=== PATIENT | female | born 1935 | race Caucasian/White ===

== ENCOUNTER 2017-10-30 17:54 | Emergency (ER) | payer OTHER ==
[~2017-10-30] VITALS: Ht 165.1 cm; Wt 100.6 kg
[~2017-10-30 17:54] MED LIST: AGGRENOX1 CAPSULE PO; APRESOLINE50 MG PO; ASPIR 8181 M1 PO; ASPIR-LOW81 M1 PO; ASPIRIN E.C.81 M1 PO; Ascorbic Acid,Ester- PO; CATAPRES0.2 MG PO; COLACE100 MG PO; COUMADIN,JANTOVE2 MG PO; COZAAR100 MG PO; DIOVAN320 MG PO; DIOVAN80 MG PO; DITROPAN5 MG PO; DULCOLAX5 MG PO; HYDROCHLOROTHIA25 MG PO; INDOCIN25 MG PO; INDOMETHACIN25 MG PO; K-DUR20 MEQ PO; LASIX20 MG PO; LASIX40 MG PO; LEVOTHYROXINE25 MCG PO; LEVOXYL25 MCG PO; LEXAPRO10 MG PO; LO-DOSE ASPIRIN81 M1 PO; LOPRESSOR50 MG PO; LOSARTAN POTAS100 MG PO; Lopressor PO; MECLIZINE HCL12.5 M1 PO; NEURONTIN300 MG PO; NEXIUM40 MG PO; Oyst-Cal D, Oscal W/ PO; PACERONE200 M1 PO; PERCOCET 5/31 TABLET PO; SERTRALINE HCL50 MG PO; SIMVASTATIN40 MG PO; Senokot,Sennagen PO; THERAGRAN1 TABLET PO; TOPROL XL50 MG PO; Tylenol Regular Stre PO; VESICARE5 MG PO; ZOCOR40 MG PO; Zocor PO
[2017-10-30 18:29] LABS: HEMATOCRIT 35.4 % (36.0-46.0); HEMOGLOBIN 11.5 G/DL (11.9-15.5); MCH 30.8 PG (29.0-34.0); MCHC 32.5 G/DL (30.0-36.0); MCV 94.9 FL (83-99); PLATELET COUNT 120 K/uL (156-360); RBC DIS.WIDTH-CV 14.7 % (11.8-14.6); RBC DIS.WIDTH-SD 51.3 % (39-53); RED BLOOD COUNT 3.73 M/uL (3.80-5.20); WHITE BLOOD COUNT 6.7 K/uL (4.1-10.2)
[2017-10-30 18:41] LABS: CHLORIDE 108 mEq/L (99-109); POTASSIUM 3.6 mEq/L (3.7-5.4); SODIUM 144 mEq/L (136-147)
[2017-10-30 18:43] LABS: GLUCOSE 101 mg/dL (70-99)
[2017-10-30 18:47] LABS: CREATININE 1.3 mg/dL (0.6-1.3); GFR ESTIMATE (CALCULATED) 42 mL/min/
[2017-10-30 18:48] LABS: UREA NITROGEN (BUN) 19 mg/dL (9-23)
[2017-10-30 18:51] LABS: TROP-I INTERPRETATION NEGATIVE; TROPONIN-I 0.02 ng/mL (0.0-0.30)
[2017-10-30] MEDS ORDERED: MOTRIN800 MG PO (19:00)
[2017-10-30] MEDS ORDERED: FLEXERIL10 MG PO (19:00)
[2017-10-30 21:21] VITALS: BP 138/76
== END 2017-10-30 21:22 | disposition home or self-care (01) ==
LOC: EME 17:54
PROVIDERS: Nurse Practitioner Family
DX: S16.1XXA Strain of muscle, fascia and tendon at neck level, initial encounter (principal); R51 Headache; V43.02XA Car driver injured in collision with other type car in nontraffic accident, initial encounter; Y92.410 Unspecified street and highway as the place of occurrence of the external cause; I11.0 Hypertensive heart disease with heart failure; I50.9 Heart failure, unspecified; Z79.82 Long term (current) use of aspirin; K21.9 Gastro-esophageal reflux disease without esophagitis; Z95.1 Presence of aortocoronary bypass graft; Z86.73 Personal history of transient ischemic attack (TIA), and cerebral infarction without residual deficits; Z95.2 Presence of prosthetic heart valve; Z96.653 Presence of artificial knee joint, bilateral; M10.9 Gout, unspecified
CPT/HCPCS: 70450; 71046; 72125; 80048; 84484; 85027; 99281; 99285

== ENCOUNTER 2018-03-10 07:03 | Inpatient (IN) | payer OTHER ==
[~2018-03-10] VITALS: Ht 165.1 cm; Wt 97.7 kg
[~2018-03-10 07:03] MED LIST changes: +FLEXERIL10 MG PO; +LEVOXYL50 MCG PO; +LEXAPRO20 MG PO; +MOTRIN800 MG PO
[2018-03-10 08:17] LABS: HEMOGLOBIN 10.1 G/DL (11.9-15.5); MCH 31.4 PG (29.0-34.0); MCHC 33.7 G/DL (30.0-36.0); MCV 93.2 FL (83-99); PLATELET COUNT 111 K/uL (156-360); RBC DIS.WIDTH-CV 15.6 % (11.8-14.6); RED BLOOD COUNT 3.22 M/uL (3.80-5.20)
[2018-03-10 08:44] LABS: TROP-I INTERPRETATION NEGATIVE; TROPONIN-I 0.06 ng/mL (0.0-0.30)
[2018-03-10 08:51] LABS: CHLORIDE 110 MEQ/L (99-109); CREATININE 1.3 MG/DL (0.6-1.3); GFR ESTIMATE (CALCULATED) 42 mL/min/; GLUCOSE 102 mg/dL (70-99); POTASSIUM 3.9 MEQ/L (3.7-5.4); SODIUM 142 MEQ/L (136-147); UREA NITROGEN (BUN) 28 mg/dL (9-23)
[2018-03-10 08:59] LABS: APPEARANCE SL.HAZY ((CLEAR)); BILIRUBIN NEGATIVE; BLOOD LARGE; COLOR YELLOW ((YELLOW)); GLUCOSE (STRIP) NEGATIVE; KETONES NEGATIVE; LEUKOCYTES NEGATIVE; NITRITE NEGATIVE; PROTEIN (STRIP) NEGATIVE; SPECIFIC GRAVITY 1.006 (1.000-1.030); UROBILINOGEN 0.2 MG/DL (0.2-1.0)
[2018-03-10 09:24] LABS: EPITHELIAL CELLS 2+ /HPF; MUCUS NONE SEEN /LPF
[2018-03-10 09:25] LABS: BACTERIA 3+ /HPF; RED BLOOD CELLS NONE SEEN /HPF (0-5); WHITE BLOOD CELLS 0-5 /HPF (0-5)
[2018-03-10] MEDS ORDERED: LYRICA75 MG PO (10:09)
[2018-03-10] MEDS ORDERED: HYDRALAZINE HCL25 MG PO (10:09)
[2018-03-10] MEDS ORDERED: VALSARTAN320 MG PO (10:09)
[2018-03-10] MEDS ORDERED: CARDIZEM60 MG PO (10:11)
[2018-03-10] MEDS ORDERED: BUSPAR5 MG PO (10:12)
[2018-03-10] MEDS ORDERED: FLUOXETINE HCL20 MG PO (10:12)
[2018-03-10] MEDS ORDERED: MELOXICAM15 MG PO (10:12)
[2018-03-10] MEDS ORDERED: MECLIZINE HCL25 MG PO (10:13)
[2018-03-10] MEDS ORDERED: FUROSEMIDE20 MG PO (10:13)
[2018-03-10] MEDS ORDERED: TYLENOL ARTHRI650 MG PO (10:14)
[2018-03-10 13:56] VITALS: BP 204/88
[2018-03-10 19:29] VITALS: BP 159/77
[2018-03-11] VITALS (7 sets, daily range): BP systolic 98–194; BP diastolic 59–86
[2018-03-11 06:04] LABS: HEMOGLOBIN 11.3 G/DL (11.9-15.5); MCV 95.1 FL (83-99)
[2018-03-11 06:06] LABS: INTER. NORMALIZED RATIO 1.1
[2018-03-11 06:09] LABS: PTT 25.1 SEC (25-37)
[2018-03-11 06:29] LABS: ALBUMIN 3.9 G/DL (3.2-4.8); ALKALINE PHOSPHATASE 56 IU/L (3-129); ALT (GPT) 15 IU/L (3-49); AST (GOT) 19 IU/L (2-34); CHLORIDE 105 MEQ/L (99-109); CREATININE 1.2 MG/DL (0.6-1.3); GFR ESTIMATE (CALCULATED) 46 mL/min/; GLUCOSE 106 mg/dL (70-99); POTASSIUM 3.5 MEQ/L (3.7-5.4); SODIUM 144 MEQ/L (136-147); TOTAL BILIRUBIN 0.6 MG/DL (0.0-1.0); TOTAL PROTEIN 6.9 G/DL (6.4-8.3); UREA NITROGEN (BUN) 20 mg/dL (9-23)
[2018-03-11 12:06] LABS: HEMATOCRIT 31.7 % (36.0-46.0); HEMOGLOBIN 10.6 G/DL (11.9-15.5); MCV 94.1 FL (83-99)
[2018-03-12 03:23] VITALS: BP 121/57
[2018-03-12 06:57] LABS: BASOPHIL (%) 1.5 % (0-1); BASOPHIL COUNT 0.1 K/uL (0-0.1); EOSINOPHIL (%) 4.3 % (0-5); EOSINOPHIL COUNT 0.2 K/uL (0-0.3); HEMATOCRIT 30.7 % (36.0-46.0); HEMOGLOBIN 9.8 G/DL (11.9-15.5); IMMATURE GRANULOCYTE (%) 0.2 % (0.0-0.7); LYMPHOCYTE (%) 16.6 % (15-42); LYMPHOCYTE COUNT 0.9 K/uL (1.0-2.8); MCH 30.4 PG (29.0-34.0); MCHC 31.9 G/DL (30.0-36.0); MCV 95.3 FL (83-99); MONOCYTE (%) 9.3 % (3-12); MONOCYTE COUNT 0.5 K/uL (0-0.8); NEUTROPHIL (%) 68.1 % (45-76); NEUTROPHIL COUNT 3.7 K/uL (1.8-6.4); PLATELET COUNT 114 K/uL (156-360); RBC DIS.WIDTH-CV 15.9 % (11.8-14.6); RBC DIS.WIDTH-SD 55.4 % (39-53); RED BLOOD COUNT 3.22 M/uL (3.80-5.20); WHITE BLOOD COUNT 5.4 K/uL (4.1-10.2)
[2018-03-12 07:08] LABS: CHLORIDE 109 MEQ/L (99-109); GFR ESTIMATE (CALCULATED) 31 mL/min/; GLUCOSE 96 mg/dL (70-99); SODIUM 145 MEQ/L (136-147); UREA NITROGEN (BUN) 18 mg/dL (9-23)
[2018-03-12 07:11] LABS: CREATININE 1.7 MG/DL (0.6-1.3)
[2018-03-12 08:04] VITALS: BP 122/59
[2018-03-12 11:44] VITALS: BP 92/52
[2018-03-12 15:32] VITALS: BP 103/54
[2018-03-12 19:17] VITALS: BP 119/59
[2018-03-12 23:25] VITALS: BP 97/53
[2018-03-13 03:38] VITALS: BP 105/67
[2018-03-13 06:14] LABS: BASOPHIL (%) 0.8 % (0-1); BASOPHIL COUNT 0.1 K/uL (0-0.1); EOSINOPHIL (%) 4.6 % (0-5); EOSINOPHIL COUNT 0.3 K/uL (0-0.3); HEMATOCRIT 27.6 % (36.0-46.0); IMMATURE GRANULOCYTE (%) 0.3 % (0.0-0.7); LYMPHOCYTE (%) 19.4 % (15-42); LYMPHOCYTE COUNT 1.2 K/uL (1.0-2.8); MCH 31.3 PG (29.0-34.0); MCHC 32.6 G/DL (30.0-36.0); MCV 95.8 FL (83-99); MONOCYTE (%) 11.7 % (3-12); MONOCYTE COUNT 0.7 K/uL (0-0.8); NEUTROPHIL (%) 63.2 % (45-76); NEUTROPHIL COUNT 3.7 K/uL (1.8-6.4); PLATELET COUNT 105 K/uL (156-360); RBC DIS.WIDTH-CV 15.9 % (11.8-14.6); RBC DIS.WIDTH-SD 55.8 % (39-53); RED BLOOD COUNT 2.88 M/uL (3.80-5.20); WHITE BLOOD COUNT 5.9 K/uL (4.1-10.2)
[2018-03-13 08:10] VITALS: BP 104/66
[2018-03-13 12:06] VITALS: BP 130/60
[2018-03-13] MEDS ORDERED: VALSARTAN320 MG PO (13:22)
== END 2018-03-13 19:02 | disposition home or self-care (01) | DRG 379 ==
LOC: EME 07:03 → 2EASTP 11:21 → EDOF 11:21 → ENRESERV 11:28 → 2EASTP 13:10
PROVIDERS: Family Medicine Sports Medicine; Internal Medicine Gastroenterology; Nurse Practitioner Family
PROC: 0DJD8ZZ Inspection of Lower Intestinal Tract, Via Natural or Artificial Opening Endoscopic (ICD-10-PCS; principal; 2018-03-11)
DX: K92.2 Gastrointestinal hemorrhage, unspecified (principal); K57.30 Diverticulosis of large intestine without perforation or abscess without bleeding; E87.6 Hypokalemia; I95.9 Hypotension, unspecified; D64.9 Anemia, unspecified; D69.6 Thrombocytopenia, unspecified; I11.0 Hypertensive heart disease with heart failure; I50.9 Heart failure, unspecified; I48.0 Paroxysmal atrial fibrillation; M10.9 Gout, unspecified; G43.909 Migraine, unspecified, not intractable, without status migrainosus; E03.9 Hypothyroidism, unspecified; K21.9 Gastro-esophageal reflux disease without esophagitis; I25.10 Atherosclerotic heart disease of native coronary artery without angina pectoris; E78.5 Hyperlipidemia, unspecified; K64.8 Other hemorrhoids; Z96.653 Presence of artificial knee joint, bilateral; Z79.82 Long term (current) use of aspirin; Z95.1 Presence of aortocoronary bypass graft; Z86.73 Personal history of transient ischemic attack (TIA), and cerebral infarction without residual deficits; Z85.828 Personal history of other malignant neoplasm of skin; Z95.2 Presence of prosthetic heart valve
CPT/HCPCS: 71046; 74177; 80048; 80053; 81003; 84484; 85014; 85018; 85025; 85027; 85610; 85730; 86850; 86900; 86901; 93005; 99281; 99284; J7030